=== PATIENT | male | born 1995 | race Two or more races ===

== ENCOUNTER 2021-11-02 21:28 | Emergency (ER) | payer MEDICAID, OTHER ==
[~2021-11-02] VITALS: Ht 175.3 cm; Wt 154.2 kg
[2021-11-02] MEDS ORDERED: KETOROLAC TROMETH 60MG/2ML VIAL IM ONE (22:15)
[2021-11-02 23:04] VITALS: BP 127/84
== END 2021-11-02 23:06 | disposition home or self-care (01) ==
LOC: ER 21:37
DX: S50.01XA Contusion of right elbow, initial encounter (principal); S60.311A Abrasion of right thumb, initial encounter; S40.812A Abrasion of left upper arm, initial encounter; M79.10 Myalgia, unspecified site; V43.52XA Car driver injured in collision with other type car in traffic accident, initial encounter; Y93.89 Activity, other specified; Y92.410 Unspecified street and highway as the place of occurrence of the external cause; Y99.8 Other external cause status
CPT/HCPCS: 71045; 71120; 73130; 96372; 99284; J1885